=== PATIENT | male | born 1985 | race Caucasian/White ===

== ENCOUNTER 2016-12-24 04:39 | Emergency (ER) | payer BC ==
[2016-12-24] MEDS ORDERED: ONDANSETRON 4 MG VIAL ONE (05:00)
[2016-12-24] MEDS ORDERED: DILAUDID 1 MG/ML AMP ONE (05:00)
[2016-12-24] MEDS ORDERED: KETOROLAC 30 MG/ML VIAL ONE (05:01)
== END 2016-12-24 06:31 | disposition home or self-care (01) ==
LOC: ER 04:39
DX: N20.1 Calculus of ureter (principal)
CPT/HCPCS: 36415; 74176; 80053; 81001; 83690; 85025; 96374; 96375